=== PATIENT | female | born 1955 | race Caucasian/White ===

== ENCOUNTER 2016-12-09 17:38 | Inpatient (IN) | payer MEDICAID ==
[2016-12-09] MEDS ORDERED: NS 500 ML IV ONE (17:41)
[2016-12-09 18:03] LABS: % IMMATURE GRANULYOCYTES 0.1 % (0.0-1.1); ABSOLUTE IMMATURE GRANULOCYTES 0.01 10^3/uL (0.00-0.10); ADD DIFF? NO; ADD MORPH? NO; ADD SCAN? NO; ATYPICAL LYMPHOCYTE FLAG 10 (0-99); FRAGMENT RBC FLAG 0 (0-99); HEMATOCRIT 45.2 % (38.0-47.0); HEMOGLOBIN 14.8 g/dL (12.6-16.3); LEFT SHIFT FLG 0 (0-99); LIPEMIA HEMOLYSIS FLAG 80 (0-99); MEAN CELL HEMOGLOBIN 30.5 pg (27.9-34.1); MEAN CELL HEMOGLOBIN CONCENTR. 32.7 g/dL (32.4-36.7); MEAN PLATELET VOLUME 10.3 fL (8.7-11.7); PLATELET CLUMPS FLAG 10 (0-99); PLATELET COUNT 261 10^3/uL (150-400); RED BLOOD CELL COUNT 4.86 10^6/uL (4.18-5.33); RED CELL DISTRIBUTION WIDTH 13.4 % (11.5-15.2)
[2016-12-09 18:12] LABS: INR 1.01 (0.83-1.16)
[2016-12-09 18:13] LABS: APTT 26.8 SEC (23.0-38.0)
--- NOTE | 2016-12-09 18:13 | EDPHY ---
H & P Time Seen by Provider: 12/09/16 17:41 HPI/ROS: HPI High blood pressure comma short of breath. 61-year-old female from the up stairs office of her primary care physician Dr. Montes De Oca. She reports that she noticed that she was feeling some shortness of breath and lightheadedness with exertion at the end this last summer. She reports over the last 2 weeks this is gotten worse. She reports that if she goes up a flight of stairs she becomes very short of breath and has a difficult time catching her breath. In association with that she feels palpitations which she describes as her heart beating fast and she feels lightheaded. She denies any associated chest pain. ROS: Constitutional: No fever, no chills. No weakness. Eyes: No discharge. No changes in vision. ENT: No sore throat. No nasal congestion or rhinorrhea. Respiratory: No cough. As above. Cardiac: No chest pain, as above. Gastrointestinal: No abdominal pain, no vomiting, no diarrhea. Genitourinary: No hematuria. No dysuria or increased frequency with urination. Musculoskeletal: No back pain. No neck pain. No myalgias or arthralgias. Skin: No rashes. Neurological: No headache. No focal weakness or altered sensation. Past medical history: Hyperlipidemia, oophorectomy, hypothyroidism. As above. Social history: Nonsmoker. No alcohol. Here by herself. Physical Exam: General Appearance: Alert, no distress. This patient is responding to questions appropriately and in full sentences. This patient appears well- hydrated and well-nourished. Eyes: Pupils equal and round no pallor or injection. No lid edema, erythema or injection. ENT, Mouth: Mucous membranes are moist. The pharyngeal tissues are unremarkable. No edema or swelling. No asymmetry suggestive of abscess. No erythema or exudates. Respiratory: There are no retractions, lungs are clear to auscultation with good air movement bilaterally. No tachypnea. Cardiovascular: Regular rate and rhythm. Heart sounds distant. No murmur. Gastrointestinal: Abdomen is soft and nontender, no masses, bowel sounds normal. No focal tenderness at McBurney's point. No Hernandez sign. Neurological: Motor sensory function is grossly intact. Cranial nerves are normal. Gait is normal. Skin: Warm and dry, no rashes. Musculoskeletal: Neck is supple and nontender. Extremities are symmetrical. All joints range without pain or impingement. Psychiatric: No agitation. No depression. Database: EKG: EKG time is 6:29 p.m.; EKG shows a narrow complex normal sinus rhythm with a ventricular rate of 95. The GA, QRS, QT intervals are within normal limits. There are no ST-T wave changes indicative of ischemic or injury pattern. No evidence of right heart strain. Interpreted by me. Imaging: Chest x-ray AP portable; the cardiac mediastinal silhouette is unremarkable. No evidence of infiltrate or pneumothorax. No acute cardiopulmonary disease process noted. Interpreted by me. CT angiogram of chest; no evidence of pulmonary embolism. There is some mild dilatation of the proximal aorta. This is otherwise a negative study. No evidence of pericardial effusion. Results discussed with staff radiologist Dr. Sergio Gaytan. Procedures: Emergency department course: Vital signs reviewed. She is afebrile. Triage blood pressure 212/116. Heart rate in the 80s. On my evaluation at 6:10 p.m. her blood pressure is 234/204. galvanizing pot runner shows a narrow complex sinus rhythm with ventricular rate of 89. She is 92% on 2 L by nasal cannula oxygen. An IV was placed. She will be started on IV nitroglycerin drip initially at 60 micrograms/minute with orders to titrate this medication up to a systolic blood pressure less than 200 and a diastolic blood pressure less than 110. 6:10 p.m., placed in since pulse oximetries dipping down into the upper 80s on nasal cannula oxygen. Placed on face mask oxygen at 5 L per minute. 6:20 p.m., patient re-evaluated. Currently on nitroglycerin drip at 60 micrograms/minute, blood pressure has decreased to 135/82. Nitroglycerin drip decreased to 20 mcg per minute. Patient denies any lightheadedness. States that she feels better. Denies any chest pain. 6:35 p.m., blood pressure 118/74. 6:40 p.m., blood pressure 123/76. Pulse oximetry at 94% on non-rebreather face mask at 5 L. Patient comfortable and states she feels better. D-dimer elevated. CT angiogram of chest ordered. Patient consents. 8:25 p.m., patient resting comfortably. Blood pressure currently 152/97. galvanizing pot runner shows a narrow complex sinus rhythm with ventricular rate of 79. Pulse oximetry is 93-95% on 6 L by face mask. Results of CT scan and blood work discussed with her. Plan for admission reviewed. She endorses. Hospitalist mahendra. Nitroglycerin drip has been discontinued. 8:50 p.m., spoke with on-call hospitalist Dr. Barber. Case discussed in detail with him. He accepts the patient for admission to telemetry observation. An echocardiogram be obtained, catecholamines will be evaluated. Patient resting comfortably at this time. Blood pressure currently 136/79. Heart rate 78. Her remaining emergency department course under my care has been uneventful. I have filled out the appropriate transfer paperwork. She was transferred in stable and improved condition to [facility]. Differential Diagnosis: The differential diagnosis on this patient includes but is not limited to hypertensive emergency, congestive heart failure secondary to hypertensive emergency, pulmonary embolism, thyroid storm, pheochromocytoma. This represents a partial list of diagnoses considered. These considerations are based on history, physical exam, past history, reassessment and diagnostic testing. Smoking Status: Former smoker Constitutional: Initial Vital Signs Temperature (C) 36.5 C 12/09/16 17:43 Heart Rate 89 12/09/16 17:43 Respiratory Rate 20 12/09/16 17:43 Blood Pressure 212/116 H 12/09/16 17:43 O2 Sat (%) 89 L 12/09/16 17:43 O2 Delivery Mode Room Air O2 (L/minute) 6 Allergies/Adverse Reactions: tetracycline Allergy (Verified 12/09/16 17:51) Home Medications: Medication Instructions Recorded Atorvastatin Calcium 12/09/16 Levothyroxine 12/09/16 Medical Decision Making - Diagnostics Imaging Results: Imaging Impressions Chest X-Ray 12/09/16 17:42 Impression: No acute abnormality. If there is progression of the patient's symptoms, consider PA and lateral upright views in the department. Chest/Thorax CTA 12/09/16 18:44 Impression: 1. No evidence of pulmonary embolic disease. 2. Aortic plaque formation and mild dilatation of the ascending aorta, without evidence for aortic dissection. Results called and discussed with Avinash Trivedi M.D., on December 09, 2016 at 2021. Critical Care Time: I spent a total of 47 minutes of critical care time in obtaining history, performing a physical exam, bedside monitoring of interventions, collecting and interpreting tests and discussion with consultants but not including time spent performing procedures. - Data Points Laboratory Results: Laboratory Results 12/09/16 17:55 12/09/16 17:55 12/09/16 12/09/16 12/09/16 18:00 17:55 17:55 WBC RBC Hgb Hct MCV MCH MCHC RDW Plt Count MPV Neut % (Auto) Lymph % (Auto) [place] % (Auto) Eos % (Auto) Baso % (Auto) Nucleat RBC Rel Count Absolute Neuts (auto) Absolute Lymphs (auto) Absolute Monos (auto) Absolute Eos (auto) Absolute Basos (auto) Absolute Nucleated RBC Immature Gran % Immature Gran # PT INR APTT D-Dimer Sodium 141 mEq/L mEq/L (134-144) Potassium 4.1 mEq/L mEq/L (3.5-5.2) Chloride 104 mEq/L mEq/L (97-110) Carbon Dioxide 25 mEq/l mEq/l (22-31) Anion Gap 12 mEq/L mEq/L (8-16) BUN 9 mg/dL mg/dL (7-23) Creatinine 0.8 mg/dL mg/dL (0.6-1.0) Estimated GFR > 60 Glucose 99 mg/dL mg/dL (70-100) Calcium 9.3 mg/dL mg/dL (8.5-10.4) Creatine Kinase 58 IU/L IU/L (0-156) CK-MB (CK-2) Fraction 0.68 ng/mL ng/mL (0.00-4.55) Troponin I < 0.012 ng/mL ng/mL (0.000-0.034) NT-Pro-B Natriuret Pep 194 pg/mL H pg/mL (0-125) TSH 3.220 uIU/mL uIU/mL (0.465-4.680) Plasma Free Normeta Pending Plas Total Metaneph Pending 12/09/16 12/09/16 17:55 17:55 WBC 7.62 10^3/uL 10^3/uL (3.80-9.50) RBC 4.86 10^6/uL 10^6/uL (4.18-5.33) Hgb 14.8 g/dL g/dL (12.6-16.3) Hct 45.2 % % (38.0-47.0) MCV 93.0 fL fL (81.5-99.8) MCH 30.5 pg pg (27.9-34.1) MCHC 32.7 g/dL g/dL (32.4-36.7) RDW 13.4 % % (11.5-15.2) Plt Count 261 10^3/uL 10^3/uL (150-400) MPV 10.3 fL fL (8.7-11.7) Neut % (Auto) 64.5 % % (39.3-74.2) Lymph % (Auto) 25.1 % % (15.0-45.0) [place] % (Auto) 8.5 % % (4.5-13.0) Eos % (Auto) 1.3 % % (0.6-7.6) Baso % (Auto) 0.5 % % (0.3-1.7) Nucleat RBC Rel Count 0.0 % % (0.0-0.2) Absolute Neuts (auto) 4.91 10^3/uL 10^3/uL (1.70-6.50) Absolute Lymphs (auto) 1.91 10^3/uL 10^3/uL (1.00-3.00) Absolute Monos (auto) 0.65 10^3/uL 10^3/uL (0.30-0.80) Absolute Eos (auto) 0.10 10^3/uL 10^3/uL (0.03-0.40) Absolute Basos (auto) 0.04 10^3/uL 10^3/uL (0.02-0.10) Absolute Nucleated RBC 0.00 10^3/uL 10^3/uL (0-0.01) Immature Gran % 0.1 % % (0.0-1.1) Immature Gran # 0.01 10^3/uL 10^3/uL (0.00-0.10) PT 13.0 SEC SEC (12.0-15.0) INR 1.01 (0.83-1.16) APTT 26.8 SEC SEC (23.0-38.0) D-Dimer 1.85 ug/mLFEU H ug/mLFEU (0.00-0.50) Sodium Potassium Chloride Carbon Dioxide Anion Gap BUN Creatinine Estimated GFR Glucose Calcium Creatine Kinase CK-MB (CK-2) Fraction Troponin I NT-Pro-B Natriuret Pep TSH Plasma Free Normeta Plas Total Metaneph Medications Given: Nitroglycerin/Dextrose (Nitroglycerin 200 Mcg/Ml (Premix)) 250 mls @ 0 mls/hr IV CONT ZARIA; Titrate PRN Reason: Protocol Stop: 06/07/17 23:59 Last Admin: 12/09/16 19:53 Dose: 250 mls Discontinued Medications Acetaminophen (Tylenol) 1,000 mg PO EDNOW ONE Stop: 12/09/16 18:59 Last Admin: 12/09/16 19:00 Dose: 1,000 mg Sodium Chloride (Ns) 500 mls @ 1,000 mls/hr IV EDNOW ONE PRN Reason: Protocol Stop: 12/09/16 18:10 Last Admin: 12/09/16 18:22 Dose: 500 mls Nitroglycerin/Dextrose (Nitroglycerin 200 Mcg/Ml (Premix)) 250 mls @ 0 mls/hr IV EDNOW ONE; Titrate PRN Reason: Protocol Stop: 12/09/16 18:02 Last Admin: 12/09/16 18:38 Dose: 250 mls Departure - Departure Disposition: [facility] Inpatient Acute Clinical Impression: Dyspnea, Hypertensive emergency, Hypoxia
[2016-12-09 18:20] LABS: ANION GAP 12 mEq/L (8-16); CALCIUM 9.3 mg/dL (8.5-10.4); CARBON DIOXIDE 25 mEq/l (22-31); CHLORIDE 104 mEq/L (97-110); CREATININE 0.8 mg/dL (0.6-1.0); GLOMERULAR FILTRATION RATE > 60; GLUCOSE 99 mg/dL (70-100); POTASSIUM 4.1 mEq/L (3.5-5.2); SODIUM 141 mEq/L (134-144)
[2016-12-09] MEDS: NITROGLYCERIN/DEXTROSE 250 ML IV ONE ×2 (18:20→18:38)
[2016-12-09 18:27] LABS: CREATINE KINASE-MB FRACTION 0.68 ng/mL (0.00-4.55); TROPONIN I < 0.012 ng/mL (0.000-0.034)
--- NOTE | 2016-12-09 18:34 | CPEKG ---
Heart Rate: 95 RR Interval: 632 P-R Interval: 156 QRSD Interval: 72 QT Interval: 372 QTC Interval: 468 P [place]: 79 QRS [place]: 62 T Wave [place]: 62 EKG Severity - NORMAL ECG - EKG Impression: SINUS RHYTHM Electronically Signed By: Avinash Trivedi 09-Dec-2016 19:38:04
[2016-12-09] MEDS ORDERED: IOPAMIDOL (ISOVUE 370) 100 ML BTL IV ONE (18:49)
[2016-12-09] MEDS ORDERED: ACETAMINOPHEN 500 MG TAB PO ONE (18:58)
[2016-12-09] MEDS ORDERED: NITROGLYCERIN/DEXTROSE 250 ML IV SCH (20:00)
[2016-12-09] MEDS ORDERED: ONDANSETRON 4 MG/2 ML VIAL IVP PRN (20:50)
[2016-12-09] MEDS ORDERED: ONDANSETRON DISINTEGRATING 4 MG TAB PO PRN (20:50)
[2016-12-09] MEDS ORDERED: ACETAMINOPHEN 325 MG TAB PO PRN (20:50)
[2016-12-09 21:25] LABS: COLOR PALE YELLOW; LEUKOCYTE ESTERASE,URINE NEGATIVE (NEGATIVE); NITRITE,URINE NEGATIVE (NEGATIVE)
--- NOTE | 2016-12-09 23:18 | PDGENHP ---
History and Physical - Chief Complaint Dyspnea - History of Present Illness 61 yo F w/ hypothyroidism presented to ED with LEE and lightheadedness. Patient has been experienced dyspnea and lightheadedness with exertions for about 6 months now. These symptoms have been progressive over this period. She also reports occasional fast heart rate accompanying these symptoms but denies jung chest pain. At this point she can walk up one flight of stairs but this takes a lot of effort, requires breaks, and results in significant dyspnea. Of note she smoked a pack of cigarettes per day for about 45 years. She has never required O2 in the past. In the ED she was noted to be very hypertensive on arrival (SBP>200). She was placed on a nitroglycerin drip with precipitous drop in BP to SBP 120s. This was stopped and BP returned to SBP 150 range. Additional work-up there included normal ECG, unremarkable laboratory work-up, and CTPE within normal limits. Patient was admitted for observation, BP control, and cardiac work-up for possible anginal equivalent symptoms. History Information - Allergies/Home Medication List Allergies/Adverse Reactions: tetracycline Allergy (Verified 12/09/16 17:51) Home Medications: Atorvastatin Calcium 12/09/16 [Last Taken Unknown] Levothyroxine 12/09/16 [Last Taken Unknown] I have personally reviewed and updated: family history, medical history - Past Medical History Additional medical history: Hypothyroid - Social History Smoking Status: Former smoker Review of Systems Review of Systems: ROS: 10pt was reviewed & negative except for what was stated in HPI & below Physical Exam Physical Exam: Temp Pulse Resp BP Pulse Ox 36.6 C 82 16 142/80 H 92 12/09/16 22:20 12/09/16 23:14 12/09/16 23:14 12/09/16 23:14 12/09/16 23:14 O2 (L/minute) 6 Constitutional: no apparent distress, appears nourished Eyes: PERRL, EOMI Ears, Nose, Mouth, Throat: moist mucous membranes, no oral mucosal ulcers Cardiovascular: regular rate and rhythym, no murmur, rub, or gallop Respiratory: no respiratory distress, reduced air movement Gastrointestinal: normoactive bowel sounds, soft, non-tender abdomen Skin: warm, normal color Musculoskeletal: full muscle strength, no muscle tenderness Neurologic: AAOx3, CN II-XII Intact Psychiatric: interacting appropriately, not anxious Lab Data & Imaging Review 12/09/16 17:55 12/09/16 17:55 WBC 7.62 10^3/uL (3.80-9.50) 12/09/16 17:55 RBC 4.86 10^6/uL (4.18-5.33) 12/09/16 17:55 Hgb 14.8 g/dL (12.6-16.3) 12/09/16 17:55 Hct 45.2 % (38.0-47.0) 12/09/16 17:55 MCV 93.0 fL (81.5-99.8) 12/09/16 17:55 MCH 30.5 pg (27.9-34.1) 12/09/16 17:55 MCHC 32.7 g/dL (32.4-36.7) 12/09/16 17:55 RDW 13.4 % (11.5-15.2) 12/09/16 17:55 Plt Count 261 10^3/uL (150-400) 12/09/16 17:55 MPV 10.3 fL (8.7-11.7) 12/09/16 17:55 Neut % (Auto) 64.5 % (39.3-74.2) 12/09/16 17:55 Lymph % (Auto) 25.1 % (15.0-45.0) 12/09/16 17:55 [place] % (Auto) 8.5 % (4.5-13.0) 12/09/16 17:55 Eos % (Auto) 1.3 % (0.6-7.6) 12/09/16 17:55 Baso % (Auto) 0.5 % (0.3-1.7) 12/09/16 17:55 Nucleat RBC Rel Count 0.0 % (0.0-0.2) 12/09/16 17:55 Absolute Neuts (auto) 4.91 10^3/uL (1.70-6.50) 12/09/16 17:55 Absolute Lymphs (auto) 1.91 10^3/uL (1.00-3.00) 12/09/16 17:55 Absolute Monos (auto) 0.65 10^3/uL (0.30-0.80) 12/09/16 17:55 Absolute Eos (auto) 0.10 10^3/uL (0.03-0.40) 12/09/16 17:55 Absolute Basos (auto) 0.04 10^3/uL (0.02-0.10) 12/09/16 17:55 Absolute Nucleated RBC 0.00 10^3/uL (0-0.01) 12/09/16 17:55 Immature Gran % 0.1 % (0.0-1.1) 12/09/16 17:55 Immature Gran # 0.01 10^3/uL (0.00-0.10) 12/09/16 17:55 PT 13.0 SEC (12.0-15.0) 12/09/16 17:55 INR 1.01 (0.83-1.16) 12/09/16 17:55 APTT 26.8 SEC (23.0-38.0) 12/09/16 17:55 D-Dimer 1.85 ug/mLFEU (0.00-0.50) H 12/09/16 17:55 Sodium 141 mEq/L (134-144) 12/09/16 17:55 Potassium 4.1 mEq/L (3.5-5.2) 12/09/16 17:55 Chloride 104 mEq/L (97-110) 12/09/16 17:55 Carbon Dioxide 25 mEq/l (22-31) 12/09/16 17:55 Anion Gap 12 mEq/L (8-16) 12/09/16 17:55 BUN 9 mg/dL (7-23) 12/09/16 17:55 Creatinine 0.8 mg/dL (0.6-1.0) 12/09/16 17:55 Estimated GFR > 60 12/09/16 17:55 Glucose 99 mg/dL (70-100) 12/09/16 17:55 Calcium 9.3 mg/dL (8.5-10.4) 12/09/16 17:55 Creatine Kinase 58 IU/L (0-156) 12/09/16 17:55 CK-MB (CK-2) Fraction 0.68 ng/mL (0.00-4.55) 12/09/16 17:55 Troponin I < 0.012 ng/mL (0.000-0.034) 12/09/16 17:55 NT-Pro-B Natriuret Pep 194 pg/mL (0-125) H 12/09/16 17:55 TSH 3.220 uIU/mL (0.465-4.680) 12/09/16 17:55 Urine Color PALE YELLOW 12/09/16 21:20 Urine Appearance CLEAR 12/09/16 21:20 Urine pH 5.0 (5.0-7.5) 12/09/16 21:20 Ur Specific [place] <= 1.005 (1.002-1.030) 12/09/16 21:20 Urine Protein NEGATIVE (NEGATIVE) 12/09/16 21:20 Urine Ketones NEGATIVE (NEGATIVE) 12/09/16 21:20 Urine Blood NEGATIVE (NEGATIVE) 12/09/16 21:20 Urine Nitrate NEGATIVE (NEGATIVE) 12/09/16 21:20 Urine Bilirubin NEGATIVE (NEGATIVE) 12/09/16 21:20 Urine Urobilinogen 0.2 EU (0.2-1.0) 12/09/16 21:20 Ur Leukocyte Esterase NEGATIVE (NEGATIVE) 12/09/16 21:20 Urine Glucose NEGATIVE (NEGATIVE) 12/09/16 21:20 Imaging Review: CTPE without pulmonary embolism. Visualized and Interpreted Chest x-ray results: Yes Chest X-Ray results: no infiltrate, normal Visualized and Interpreted EKG results: Yes EKG Interpretation: Positive for: normal sinsus rhythm, NS ST wave abnormalities Assessment & Plan Assessment: 61 yo F presents with fatigue, LEE, lightheadedness, hypoxia, and uncontrolled hypertension. Plan: 1. LEE, lightheadedness - This could represent anginal equivalent noting association with exertion. Additionally, could be related to uncontrolled BP noted upon arrival to the ED or a result of significant, unexplained hypoxia. CTPE negative for thromboembolic disease. - Monitor on telemetry - Trend cardiac enzymes - TTE, treadmill stress test ordered, NPO after MN 2. Hypertensive urgency - SBP >200 upon arrival to the ED. Not on BP medications as an outpatient. Some concern that this could be related to acute ischemic event, although ECG and initial cardiac enzymes unremarkable. Also this could be a stress response to significant hypoxia noted on arrival. BP 140/ 80 now with no medication on board. - Acute cardiac work-up as above - PRN medication overnight to maintain SBP<170 (No BB noting stress test tomorrow) - Will start amlodipine 5 mg qD in the morning - Metanephrines pending 3. AHRF - Interestingly requiring ~4 L/min O2 to maintain sats currently. CTPE without PE, consolidation, or effusion to suggest etiology. Suspect undiagnosed COPD noting significant smoking hx. Cardiac work-up as above. - TTE, stress ordered for further evaluation - Duonebs PRN - Recommend outpatient PFTs 4. Hypothyroid - TSH WNL, continue home LTX. Diet - Cardiac, NPO @ MN Ppx - SCDs Code - Full Dispo - Admit to observation status
[2016-12-10] MEDS ORDERED: IPRATROPIUM/ALBUTEROL 3 ML DEYVIAL IH PRN (00:02)
[2016-12-10 04:11] LABS: % IMMATURE GRANULYOCYTES 0.3 % (0.0-1.1); ABSOLUTE IMMATURE GRANULOCYTES 0.02 10^3/uL (0.00-0.10); ADD DIFF? NO; ADD MORPH? NO; ADD SCAN? NO; ATYPICAL LYMPHOCYTE FLAG 10 (0-99); FRAGMENT RBC FLAG 0 (0-99); HEMATOCRIT 40.9 % (38.0-47.0); HEMOGLOBIN 13.3 g/dL (12.6-16.3); LEFT SHIFT FLG 0 (0-99); LIPEMIA HEMOLYSIS FLAG 80 (0-99); MEAN CELL HEMOGLOBIN 30.8 pg (27.9-34.1); MEAN CELL HEMOGLOBIN CONCENTR. 32.5 g/dL (32.4-36.7); MEAN CELL VOLUME 94.7 fL (81.5-99.8); MEAN PLATELET VOLUME 10.6 fL (8.7-11.7); PLATELET CLUMPS FLAG 0 (0-99); PLATELET COUNT 210 10^3/uL (150-400); RED BLOOD CELL COUNT 4.32 10^6/uL (4.18-5.33); RED CELL DISTRIBUTION WIDTH 13.5 % (11.5-15.2)
[2016-12-10 04:29] LABS: ALANINE AMINOTRANSFERASE 34 IU/L (9-52); ALBUMIN 3.5 g/dL (3.5-5.0); ALKALINE PHOSPHATASE 61 IU/L (38-126); ANION GAP 11 mEq/L (8-16); ASPARTATE AMINOTRANSFERASE 16 IU/L (14-46); BILIRUBIN,TOTAL 0.5 mg/dL (0.1-1.4); CALCIUM 9.2 mg/dL (8.5-10.4); CARBON DIOXIDE 23 mEq/l (22-31); CHLORIDE 106 mEq/L (97-110); CREATININE 0.8 mg/dL (0.6-1.0); GLOMERULAR FILTRATION RATE > 60; GLUCOSE 89 mg/dL (70-100); MAGNESIUM 2.2 mg/dL (1.6-2.3); POTASSIUM 3.7 mEq/L (3.5-5.2); SODIUM 140 mEq/L (134-144); TOTAL PROTEIN 6.7 g/dL (6.3-8.2)
[2016-12-10 04:36] LABS: TROPONIN I < 0.012 ng/mL (0.000-0.034)
--- NOTE | 2016-12-10 09:57 | ECHO ---
[email or web address] [address] Main: [phone] Fax: Transthoracic Echocardiogram Name: RUPESH ROMERO MR#: [id number] Study Date: 12/10/2016 Study Time: 08:00 AM Date of : 1955 Age: 61 year(s) Height: 165.1 cm (65 in.) Weight: 71.67 kg (158 lb.) BSA: 1.79 m2 Gender: Female Examination: Echo Indication: hypertensive emergency; dyspnea, eval for diastolic dysfunction and valves issues Image Quality: Technically Difficult Contrast: Requested by: Uziel Barber BP: 149 mmHg/104 mmHg Heart Rate: Rhythm: Indication: hypertensive emergency; dyspnea, eval for diastolic dysfunction and valves issues Procedure Staff Quality Internship: Jovita Schuster Reading Physician: Jessie Rousseau Requesting Provider: Conclusions: Normal size left ventricle. No LV hypertrophy. Normal global systolic LV function. EF is 67 %. No regional wall motion abnormality. Normal size right ventricle. Normal RV function. No significant valvular disease Measurements: Chambers Valvular Assessment AV/MV Valvular Assessment TV/PV Normal Normal Normal Name Value Range Name Value Range Name Value Range IVSd (2D): 0.7 cm (0.6 cm-1.1 AV Vmax: 1.18 m/s (1 m/s-1.7 PV Vmax: 0.73 m/s (0.6 m/s-0.9 cm) m/s) m/s) LVDd (2D): 3.9 cm (3.9 cm-5.3 AV maxP mmHg ( - ) PV PGmax: 2 mmHg ( - ) cm) LVOT Vmax: 0.90 m/s (0.7 m/s-1.1 LVDs (2D): 2.4 cm (2.1 cm-4 m/s) cm) MV E Vmax: 0.72 m/s ( - ) LVPWd (2D): 0.8 cm ( - ) MV A Vmax: 0.74 m/s ( - ) LVEF (BP): 67 % (>=55 %) MV E/A: 0.97 ( - ) Continued Measurements: Chambers Valvular Assessment AV/MV Name Value Name Value LADs Lon.3 cm MV DecTime: 201 m/s LA Area: 12.0 cm2 MV E' Septal: 0.05 m/s Patient: RUPESH ROMERO Study Date: 12/10/2016 Page 1 of 2 08:00 AM LA Volume: 31 ml MV E/E' Septal: 13.70 LA Volume Index: 17.3 ml/m2 MV E/E' Lateral: 10.70 RA Area: 10.9 cm2 Additional Vessels Name Value Ao Ascendin.3 cm Findings: Left Ventricle: Normal size left ventricle. No LV hypertrophy. Normal global systolic LV function. EF is 67 %. No regional wall motion abnormality. Grade 1 diastolic dysfunction (abnormal relaxation). Right Ventricle: Normal size right ventricle. Normal RV function. Left Atrium: The left atrium is normal in size. Right Atrium: The right atrium is normal in size. Mitral Valve: The mitral valve is normal in appearance and function. Trivial mitral valve regurgitation. Aortic Valve: Aortic valve is not well visualized. There is no aortic valve regurgitation. No aortic valve stenosis is present. Tricuspid Valve: The tricuspid valve is normal in appearance and function. There is no significant tricuspid valve regurgitation. Pulmonic Valve: Pulmonary valve not well visualized. There is no pulmonic regurgitation seen. Aorta: The aorta is normal. Normal size aortic root. Normal size ascending aorta measuring 3.3 cm. IVC: The IVC is normal sized. There is greater mac 50% respiratory excursion. Pericardium: Trace anterior pericardial effusion versus fat pad. (No Signature Object) Patient: RUPESH ROMERO Study Date: 12/10/2016 Page 2 of 2 08:00 AM [id number]
--- NOTE | 2016-12-10 11:03 | HOSPPROG ---
Hospitalist Progress Note Assessment/Plan: 61 yo F presents with fatigue, LEE, lightheadedness, hypoxia, and uncontrolled hypertension. Today is my first encounter with the patient, chart reviewed. Discussed her care with Dr Aly *Acute hypoxemic respiratory failure -CTA shows nothing acute -chest x-ray shows nothing acute -was on 6 L of oxygen now on 2 L -had significant dyspnea on exertion with associated lightheadedness -echocardiogram shows no regional wall abnormalities with an EF of 67% she has normal RV function -stress test stable/ no ischemia -she could have an undiagnosed COPD with a history significant for smoking -continue duo nebs -check pft now -trial of Advair and steroids -will ask pulmonology to see -no hx of asthma or chronic bronchitis, mainly has exertional dyspnea -will check a alpha-1 antitrypsin level and procalcitonin * hypertensive urgency with a systolic blood pressure greater than 200 on arrival to the ER -could be a stress response due to the hypoxemia -pressure is markedly improved with use of oxygen * hypothyroidism-TSH is stable * Hx of smoking x 45 years/pack a day -quit 2 years ago *Plan: Came by to evaluate the patient again this afternoon. She is very short of breath with ADL's. Will need O2 at DC/ will initiate inhalers, steroids. Will ask Pulmonology to see. She will require another midnight stay for further evaluation which will make her IP status. Further f/u with PFT's. Subjective: Mitali is feeling short of breath. Was short of breath walking to the bathroom. Objective: Vital Signs Temp Pulse Resp BP Pulse Ox 36.6 C 84 16 149/104 H 91 L 12/10/16 08:15 12/10/16 08:15 12/10/16 08:15 12/10/16 08:15 12/10/16 08:15 Laboratory Results 12/10/16 03:53 12/10/16 03:53 12/09/16 12/10/16 12/11/16 05:59 05:59 05:59 Intake Total 880 Balance 880 PT 13.0 SEC (12.0-15.0) 12/09/16 17:55 INR 1.01 (0.83-1.16) 12/09/16 17:55 - Physical Exam Constitutional: no apparent distress, appears nourished, not in pain Eyes: PERRL Ears, Nose, Mouth, Throat: hearing normal Cardiovascular: regular rate and rhythym, no murmur, rub, or gallop Respiratory: no respiratory distress, reduced air movement (right base) Skin: warm Musculoskeletal: full muscle strength Neurologic: AAOx3 Psychiatric: interacting appropriately, not anxious ICD10 Worksheet Patient Problems: Problems Problem Status Onset Dyspnea Acute Hypertensive emergency Acute Hypoxia Acute
--- NOTE | 2016-12-10 11:33 | CPR ---
[f rep st] NONINVASIVE CARDIAC PROCEDURE REPORT SUPERVISING FAN BALANCER: Jessie Rousseau MD. INDICATION FOR PROCEDURE: Ongoing shortness of breath, evaluation for ischemia. PRE: After obtaining informed consent, patient was placed on electrocardiogram. Initial EKG shows s inus rhythm, normal axis, RSR prime noted in V1, interventricular conduction delay, no acute ST or T- wave abnormalities. Patient's initial blood pressure was 138/90, patient noted to have on room-air s aturation of 84%, placed on 2 L nasal cannula with saturation up to 93%. Patient denies of any chest pain or shortness of breath, or symptoms suggesting of ischemia. STRESS: The patient was placed on exercise treadmill, following standard Florentin protocol with the [facility] findings: 1. Patient exercised for 2 minutes and 29 seconds, 4.4 METS. 2. Patient obtained a heart rate of 117 beats per minute, 74% of MPHR. 3. Patient denied of any chest pain, but did report increased shortness of breath with exertion. Th e patient had no significant EKG changes suggesting of ischemia throughout testing, SpO2 on 2 L nasal cannula did drop down to 85% with exercise. No arrhythmias or pauses noted. 4. BP response at rest 138/90, peak 190/100. 5. Test was stopped due to increased shortness of breath, and maximum effort. 6. Carcamo treadmill score of 2 placing patient at intermediate cardiovascular risk. RECOVERY: Patient recovered for 5 minutes with blood pressure returning back to baseline. No signif icant EKG changes, she remained asymptomatic. No symptoms suggesting of ischemia. IMPRESSION: A 61-year-old female admitted with increased shortness of breath, being attempted to be evaluated for cardiac ischemia, exercise treadmill testing. Patient was unable to get her heart rate up to 85% of MPHR, making the test invalid for evaluation of ischemia. After discussing with Dr. Ivory dias, it was felt best that the patient should be further evaluated by nuclear stress testing, results of testing were called to Dr. Bacon of hospitalist services who is in agreement. Will plan for vonnie ent to undergo MPI study later this afternoon. She was taken back to the PCU in stable condition wit hout any complaints. /[id number]/MODL
[2016-12-10] MEDS ORDERED: REGADENOSON 0.4 MG/5 ML SYR IVP ONE (11:34)
--- NOTE | 2016-12-10 12:58 | CPR ---
[f rep st] NONINVASIVE CARDIAC PROCEDURE REPORT NAME OF STUDY: Lexiscan injection of Lexiscan MPI study. INDICATION FOR TESTING: Increased ongoing shortness of breath, evaluation for cardiac ischemia, poor exercise tolerance on exercise treadmill testing with nondiagnostic stress test. PRE: After obtaining informed consent, ensuring patient's n.p.o. status of caffeine for greater than 12 hours, patient was placed on electrocardiogram. Initial EKG showing sinus rhythm, nonspecific T- wave abnormalities in lateral leads. Patient denies any chest pain or symptoms suggesting of ischemi a. Initial blood pressure 130/98, saturation 93% on 3 L nasal cannula. INJECTION: Patient was given Lexiscan slow IV push followed by nuclear isotope. Patient did report increased shortness of breath within 1 minute of injection, with mild midsternal pressure, her vital signs remained stable, with no significant EKG changes with post injection, patient was given caffein ated beverage, and within 5 minutes symptoms did subside. Patient's peak heart rate did go up to 95 beats per minute post injection, but did return within 5 minutes back to her baseline, peak blood pre ssure at 4 minutes was 146/90. Within 5 minutes, patient reported all symptoms subsided. Vital sign s stable. IMPRESSION: A 61-year-old female reporting increased shortness of breath over the last few months, b eing evaluated for cardiac ischemia, underwent exercise treadmill testing this morning, with poor exe rcise tolerance, and making test invalid. Unable to get heart rate up to peak tolerance due to fatig ue and shortness of breath. No significant EKG changes with Lexiscan injection, no arrhythmias noted , patient did report within 1 minute of injection of mild chest pressure and increased shortness of b reath, but symptoms subsided within 5 minutes post injection with caffeinated beverage. Vital signs are currently stable, she is asymptomatic with symptoms suggesting of ischemia, she will finish posts tress imaging in Nuclear Medicine at this time. MPI results pending. /[id number]/MODL
--- NOTE | 2016-12-10 14:09 | ASMTCMCOM ---
CM Note CM Note Notes: Patient admitted with fatigue, LEE, hypoxia, and uncontrolled hypertension. Her stress test and echocardiogram were normal. Per hospitalist, there is a suspicion that she has an undiagnosed COPD (patient has a significant hx of smoking). PFTs ordered today. Anticipate patient will d/c home without any needs. CM available if any arise. Date Signed: 12/10/2016 02:08 PM Electronically Signed By:Kayy Carolina RN
[2016-12-10] MEDS ORDERED: IPRATROPIUM/ALBUTEROL 3 ML DEYVIAL ONE (15:22)
[2016-12-10] MEDS: IPRATROPIUM/ALBUTEROL 3 ML DEYVIAL IH SCH ×2 (15:30→23:23)
[2016-12-10] MEDS: methylPREDNISolone SOD SUCC 125 MG/2 ML VIAL IVP SCH (16:15)
[2016-12-10] MEDS: amLODIPine BESYLATE 5 MG TAB PO SCH (16:15)
[2016-12-10] MEDS: LEVOTHYROXINE 125 MCG TAB PO SCH (21:47)
[2016-12-10] MEDS: ATORVASTATIN CALCIUM 10 MG TAB PO SCH (21:47)
[2016-12-11] MEDS: methylPREDNISolone SOD SUCC 125 MG/2 ML VIAL IVP SCH ×2 (04:40→05:42)
[2016-12-11] MEDS: IPRATROPIUM/ALBUTEROL 3 ML DEYVIAL IH SCH ×4 (05:33→23:08)
[2016-12-11] MEDS: CHOLECALCIFEROL VIT D3 2,000 UNITS TAB/CAP PO SCH (08:24)
[2016-12-11] MEDS: OMEGA-3 FATTY ACIDS 1,000 MG CAP PO SCH (08:25)
[2016-12-11] MEDS: amLODIPine BESYLATE 5 MG TAB PO SCH (08:25)
--- NOTE | 2016-12-11 08:33 | HOSPPROG ---
Hospitalist Progress Note Assessment/Plan: 61 yo F presents with fatigue, LEE, lightheadedness, hypoxia, and uncontrolled hypertension. *Acute hypoxemic respiratory failure -CTA shows nothing acute -chest x-ray shows nothing acute -uusally on room air/ on 4 liters this morning -had significant dyspnea on exertion with associated lightheadedness -echocardiogram shows no regional wall abnormalities with an EF of 67% she has normal RV function -myocardial perfusion scan/ no ischemia -she could have an undiagnosed COPD with a history significant for smoking -continue duo nebs -PFT done/ will ask RT about results (not on chart) -trial of Advair and steroids -will ask pulmonology to see -no hx of asthma or chronic bronchitis, mainly has exertional dyspnea, no cough -alpha-1 antitrypsin level pending -procalcitonin level low * hypertensive urgency with a systolic blood pressure greater than 200 on arrival to the ER -could be a stress response due to the hypoxemia -pressure is markedly improved with use of oxygen * hypothyroidism-TSH is stable * Hx of smoking x 45 years/pack a day -quit 2 years ago -congratulated her on this *Plan: will dc iv steroids, she is feeling better, start prednisone. Await input from Dr Hopkins. Subjective: Mitali is feeling much better than when admitted. Objective: Vital Signs Temp Pulse Resp BP Pulse Ox 36.4 C 96 16 139/67 H 94 12/11/16 07:58 12/11/16 07:58 12/11/16 07:58 12/11/16 07:58 12/11/16 07:58 Laboratory Results 12/10/16 03:53 12/10/16 03:53 12/10/16 12/11/16 12/12/16 05:59 05:59 05:59 Intake Total 880 1100 Balance 880 1100 PT 13.0 SEC (12.0-15.0) 12/09/16 17:55 INR 1.01 (0.83-1.16) 12/09/16 17:55 - Physical Exam Constitutional: no apparent distress, appears nourished, not in pain Eyes: PERRL Ears, Nose, Mouth, Throat: hearing normal Cardiovascular: regular rate and rhythym Respiratory: no respiratory distress, reduced air movement, No expiratory wheeze , No rhonchi Gastrointestinal: normoactive bowel sounds Skin: warm Musculoskeletal: full muscle strength Neurologic: AAOx3 Psychiatric: interacting appropriately, not anxious ICD10 Worksheet Patient Problems: Problems Problem Status Onset Dyspnea Acute Hypertensive emergency Acute Hypoxia Acute
--- NOTE | 2016-12-11 08:56 | PDMN ---
Medical Necessity Medical necessity: change to IP; los >2 mn for acute hypoxemic resp fail, hypertensive urgency, for initiation of inhalers, steroids, pulm consult & monitoring of BP; per progress note & order 12/10/16
[2016-12-11] MEDS ORDERED: Herbals/Supplements -Info Only PO SCH (09:00)
[2016-12-11] MEDS: predniSONE 20 MG TAB PO SCH (10:41)
[2016-12-11] MEDS: ATORVASTATIN CALCIUM 10 MG TAB PO SCH (20:49)
[2016-12-11] MEDS: LEVOTHYROXINE 125 MCG TAB PO SCH (20:49)
--- NOTE | 2016-12-11 21:59 | GCON ---
[f rep st] CONSULTATION PULMONARY CONSULTATION DATE OF CONSULTATION: 12/11/2016 REASON FOR CONSULTATION: Shortness of breath, hypoxemia, COPD. HISTORY OF PRESENT ILLNESS: The patient is a very pleasant 61-year-old female, who was admitted on , with dyspnea on exertion, associated with some subjective lightheadedness. She was hypertensiv e in the emergency department, as well as hypoxemic. She was treated for hypertension. She has been seen by Cardiology with a negative treadmill test and myocardial perfusion study, however, the achie stephen heart rate was somewhat suboptimal. She does have a history of significant tobacco abuse. She s tarted smoking at the age of 14, and quit smoking at the age of 59, averaging 1 pack of cigarettes pe r day. She has never been told she had chronic obstructive pulmonary disease, has not been on oxygen or inhalers, however, she has been increasingly dyspneic with exertion over the last several years. In general, she has done less and less. On trying to walk around a [place] this last summer, she would have to sit down frequently to catch her breath. 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 A CT angiogram of the chest was done on admission. There was no evidence of pulmonary embolic diseas e, pneumonia, pleural effusions, etc. There was some minimal basilar atelectasis, and no evidence of significant emphysema. A cardiac echo was done, which showed normal left ventricular function, the right ventricle also appeared normal, as did right ventricular function. There did not appear to be any pulmonary hypertension. Mild diastolic dysfunction was found. Spirometry was performed pre and post bronchodilator. There is evidence for severe obstructive disea se with improvement post bronchodilator. Mild restrictive disease cannot be excluded at this time. PAST MEDICAL HISTORY: Remarkable for hypothyroidism; on replacement, hyperlipidemia, and recently no lindsey hypertension. MEDICATIONS: She is currently on amlodipine. DRUG ALLERGIES: Tetracycline. SOCIAL HISTORY: The patient previously worked as an plant accountant. 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 She has not smoked for the last 2 years. S ignificant alcohol is denied. She has a daughter who lives in [place]. She has been for ma ny years. She lives independently. FAMILY HISTORY: Noncontributory. REVIEW OF SYSTEMS: A 10-point review of systems is unremarkable. PHYSICAL EXAMINATION: GENERAL: Reveals a very pleasant woman, who is sitting comfortably on the rebecca e of her bed. She is in no distress. VITAL SIGNS: Oxygen is in place at 4 L with saturations of 97 %. She is afebrile. Heart rate is 90 to 110 and regular. Blood pressure is 137/54. HEENT: Unrema rkable for lymphadenopathy or thyromegaly. NECK: There is no jugular venous distention. PULMONARY: The chest reveals decreased breath sounds bilaterally with a prolonged expiratory phase. There are no wheezes, rales, or rhonchi. HEART: Tones are distant. The rhythm is currently regular. No gal lops are appreciated. ABDOMEN: Soft, nontender, perhaps mildly overweight. There is no obvious org anomegaly. Bowel sounds are present. EXTREMITIES: Unremarkable for edema. NEUROLOGIC: Within nor mal limits. DATABASE: Radiologic studies and cardiac echo are as outlined above. LABORATORY DATA: White blood cell count is 7000, hematocrit 40, platelets normal. PT and PTT were n ormal on admission. Chemistries are entirely within normal limits, as was urinalysis on admission. ASSESSMENT: 1. Chronic obstructive pulmonary disease. This is secondary to a long history of tobacco abuse. He r admission may have been precipitated by a mild exacerbation, possibly secondary to low-grade viral infection versus allergies? Or perhaps her admission at this time simply represents slow decompensat ion coupled with increased physical demands from her recent employment resulting in more noticeable d yspnea on exertion. She is currently being treated with bronchodilator therapies and steroids, both of which are appropriate. Other medications are not indicated at this time, however, they can be con sidered as an outpatient in the future. No antibiotics are indicated. 2. Hypertension. Her increased blood pressure on admission may in part have been secondary to incre ased physical stress from respiratory decompensation. PLAN/RECOMMENDATIONS: Duonebs and steroids along with oxygen should be continued. She can be sent h ome on all these. I will plan on following her in the office as an outpatient. She will likely need oxygen with heavier exertional activities and at night. It remains to be seen whether not she will need oxygen more continuously and at rest during the day. I would hope not. Other medications can b e considered as an outpatient, including inhaled steroids, in combination with long-acting bronchodil ators, anticholinergics, etc. All of the above was discussed with the patient. Further plans and recommendations will be made over the next 12-24 hours. It would seem to be appropriate to consider her for discharge to home tomorro w. /[id number]/MODL
[2016-12-12] MEDS: IPRATROPIUM/ALBUTEROL 3 ML DEYVIAL IH SCH ×2 (05:07→11:40)
[2016-12-12 05:23] VITALS: BP 126/70
[2016-12-12] MEDS: OMEGA-3 FATTY ACIDS 1,000 MG CAP PO SCH (08:17)
[2016-12-12] MEDS: predniSONE 20 MG TAB PO SCH (08:17)
[2016-12-12] MEDS: amLODIPine BESYLATE 5 MG TAB PO SCH (08:17)
[2016-12-12] MEDS: CHOLECALCIFEROL VIT D3 2,000 UNITS TAB/CAP PO SCH (08:18)
[2016-12-12 08:25] VITALS: TEMP 97.6
--- NOTE | 2016-12-12 09:41 | SOAPPROG ---
SOAP Progress Note Assessment/Plan: Assessment: COPD. This is a new diagnosis for the patient. She has relatively severe disease. She has a 45 pack year history of tobacco abuse, and quit 2 years ago. She has had progressive dyspnea with exertional activities and presents now probably secondary to a slow progression of her disease combined with increased physical activity. She will need oxygen at home, inhaled therapies including nebulized albuterol/ipratropium bromide. She will go home on prednisone and can taper this slowly. Advair will be started now. Further medication changes can be made as an outpatient. Hypertension. High blood pressures present on admission. BP well controlled on low-dose amlodipine. Plan: Discharge home later today.. She will need to be seen by PT and OT today. I would like her ambulated, including a flight of stairs. Respiratory therapy to check saturations at rest on room air with exertion. I recommend that she goes home on 40 mg of prednisone for 2 more days then taper slowly: 30 mg x4 days, 20 mg x4 days, 10 mg x4 days, 5 mg x4 days then off. I will try to see her back in the office next week. She should also go home on duo nebs four times daily. I will start Advair now. Further medication changes or additions will be considered as an outpatient. All the above was discussed with the patient, nursing, and respiratory therapy. Patient to call office to schedule an appointment: [phone] Subjective: Slept well overnight. No complaints. No cough, no mucus. Does not feel particularly short of breath. No chest pain. Anxious for discharge. Remains on oxygen at 4 L. Has not ambulated. Has stairs at home. Objective: Vital Signs Temp Pulse Resp BP Pulse Ox 36.4 C 88 18 126/70 H 93 12/12/16 08:00 12/12/16 08:00 12/12/16 08:00 12/12/16 08:17 12/12/16 08:00 12/11/16 12/12/16 12/13/16 05:59 05:59 05:59 Intake Total 1100 2220 Output Total 600 Balance 1100 1620 PT 13.0 SEC (12.0-15.0) 12/09/16 17:55 INR 1.01 (0.83-1.16) 12/09/16 17:55 Physical Exam - Physical Exam General Appearance: alert, no apparent distress EENT: other (Oxygen in place by nasal cannula at 4 L.) Neck: normal inspection Respiratory: lungs clear, decreased breath sounds (Distant breath sounds consistent with COPD.), prolonged expiration, No rales, No rhonchi, No wheezing Cardiac/Chest: regular rate, rhythm Abdomen: normal bowel sounds, non-tender, soft Skin: normal color, warm/dry Extremities: No pedal edema Neuro/Psych: no motor/sensory deficits, No cognition abnormalities ICD10 Worksheet Patient Problems: Problems Problem Status Onset Dyspnea Acute Hypertensive emergency Acute Hypoxia Acute
[2016-12-12] MEDS ORDERED: FLUTICASONE/SALMETER 250/50MCG DISKUS IH SCH (10:00)
--- NOTE | 2016-12-12 10:05 | PDHOMEO2F ---
Home Oxygen Face to Face Home Orders: I certify that a physician or a nurse practitioner or physician's assistant professor of mathematics has had a stsy-wv-jwti encounter with this patient on the date of this order due to the diagnosis listed, which relates to the primary reason the patient requires home oxygen. Alternative treatments have been tried, or considered, and deemed ineffective. It is anticipated that supplemental oxygen will result in improvement with treatment. Home oxygen qualifying diagnosis: COPD exacerbation SpO2 on room air (%): 82% Frequency of home oxygen needed: continuous Home oxygen liters per minute: 4 Home oxygen delivery device: nasal cannula Concentrator: Yes E-tanks for mobility and back up: Yes If ordering portable O2, is the patient mobile in the home?: Yes I certify that, based on these findings, the home oxygen is medically necessary for this patient for the following length of time. Length of time home oxygen needed: 99 years
--- NOTE | 2016-12-12 10:37 | HOSPPROG ---
Hospitalist Progress Note Assessment/Plan: 61 yo F presents with fatigue, LEE, lightheadedness, hypoxia, and uncontrolled hypertension. 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 Objective: Vital Signs Temp Pulse Resp BP Pulse Ox 36.4 C 88 18 126/70 H 81 L 12/12/16 08:00 12/12/16 08:00 12/12/16 08:00 12/12/16 08:17 12/12/16 10:14 12/11/16 12/12/16 12/13/16 05:59 05:59 05:59 Intake Total 1100 2220 Output Total 600 Balance 1100 1620 PT 13.0 SEC (12.0-15.0) 12/09/16 17:55 INR 1.01 (0.83-1.16) 12/09/16 17:55 - Physical Exam Constitutional: no apparent distress, appears nourished, not in pain Eyes: PERRL Ears, Nose, Mouth, Throat: hearing normal Cardiovascular: regular rate and rhythym, tachycardia Respiratory: no respiratory distress Gastrointestinal: normoactive bowel sounds Skin: warm Musculoskeletal: full muscle strength Neurologic: AAOx3 Psychiatric: interacting appropriately ICD10 Worksheet Patient Problems: Problems Problem Status Onset Dyspnea Acute Hypertensive emergency Acute Hypoxia Acute
[2016-12-12 11:52] VITALS: PULSE 86; RESP 16
[2016-12-12 12:50] VITALS: O2SAT 93
--- NOTE | 2016-12-12 16:35 | ASDISCHSUM ---
Discharge Information Plan Status:Home with No Needs Medically Cleared to Leave: Discharge Date:12/12/2016 03:24 PM CM D/C Disposition:Home, Routine, Self-Care ADT D/C Disposition:Home, Routine, Self-Care Projected Discharge Date:12/12/2016 03:24 PM Transportation at D/C: Discharge Delay Reason: Follow-Up Date:12/12/2016 03:24 PM Discharge Slot: Final Diagnosis: Placement Information Patient Contact Information Contact Name:ROMARIO Relationship:Sister Address: Work Phone: City: [facility] Phone: State/Zip Code: Email: Financial Information Financial Class: Primary Plan Desc:[employer] [place] Primary Plan Number:[id number] Secondary Plan Desc: Secondary Plan Number: Assessment Information [facility] CM Progress Note CM Note CM Note Notes: Patient admitted with fatigue, LEE, hypoxia, and uncontrolled hypertension. Her stress test and echocardiogram were normal. Per hospitalist, there is a suspicion that she has an undiagnosed COPD (patient has a significant hx of smoking). PFTs ordered today. Anticipate patient will d/c home without any needs. CM available if any arise. Date Signed: 12/10/2016 02:08 PM Electronically Signed By:Kayy Carolina RN Intervention Information
--- NOTE | 2016-12-12 18:23 | GDS ---
[f rep st] DISCHARGE SUMMARY DISCHARGE DIAGNOSES: 1. Chronic obstructive pulmonary disease, new diagnosis. 2. Hypertensive urgency with systolic pressure elevated on admission. 3. Hypothyroidism. 4. History of smoking x45 years. 5. Increased stressors. 6. Tachycardia. CONSULTATIONS: Dr. Eduard Hopkins. Briefly, this is a very sweet patient who presented to the emergency room with dyspnea on exertion as well as lightheadedness. She has been having ongoing shortness of breath and exertion for approximately 6 months, but had been progressing over a period of time. In the emergency room, she was noted to be very hypertensive with a systolic blood pressure greater than 200 and was placed on a nitroglycerin drip and her systolic dropped to the 120s. She had a CTA performed on admission to rule out a PE. This showed no evidence of pulmonary embolic disease. She had some aortic plaque formation and mild dilation of the ascending aorta without evidence for aortic dissection. It was unclear initially if it was her heart. She had a myocardial perfusion scan performed that showed no evidence of myocardial ischemia. She had pulmonary function tests which were indicative of COPD. She was seen and evaluated by Dr. Eduard Hopkins. She will continue treatment for her COPD as well as home oxygen. She will further follow up with Dr. Eduard Hopkins in the outpatient setting. HOSPITAL COURSE: 1. COPD. This is a new diagnosis for her. She is requiring 4 L of oxygen. Recommending she stay on oxygen around the clock. She has an appointment to follow up with Dr. Hopkins in the outpatient setting. 2. Hypertensive urgency with elevated systolic blood pressure greater than 200 on arrival. This was most likely a stress response due to the hypoxemia. She has been started on low-dose Norvasc and she will continue this.Blood pressure has been stable. 3. Hypothyroidism. TSH is stable. 4. Increased stressors. Her boss recently a few years ago resulting in her losing her job. 5. Tachycardia. CTA is negative. This is intermittent. Avoiding a beta kayden at this time due to her new COPD diagnosis. CONDITION ON DISCHARGE: Stable. Blood pressure is 126/70. O2 sats on room air are 81%; on 4 L are 94%. Respiratory rate is 18, pulse is 88, temperature 36.4 Celsius. MEDICATIONS AT DISCHARGE: Please see the EMR. DISCHARGE INSTRUCTIONS: 1. To follow up with Dr. Hopkins in the outpatient setting. 2. To wear the oxygen around the clock. 3. Take the prednisone with food. She will be on a slow wean with this. 4. If she develops fever, chills, chest pain, shortness of breath, return to the ER. Greater than 30 minutes discharging and coordinating care. /[id number]/MODL MTDD
[2016-12-13 13:41] LABS: METANEPHRINES PLASMA METAP <0.20 nmol/L (<0.50); NORMETANEPHRINE PLASMA METAP 1.3 nmol/L (<0.90)
== END 2016-12-12 15:24 | disposition home or self-care (01) | DRG 189 ==
LOC: CED 17:38 → CEDHOLD 20:52 → F2W 22:56 → OBSVTOIN 12-10 15:39
PROVIDERS: ADMIT Internal Medicine; ATTEND Student in an Organized Health Care Education/Training Program
DX: J96.01 Acute respiratory failure with hypoxia (principal); J44.9 Chronic obstructive pulmonary disease, unspecified; I16.0 Hypertensive urgency; E03.9 Hypothyroidism, unspecified; E78.5 Hyperlipidemia, unspecified; Z87.891 Personal history of nicotine dependence
CPT/HCPCS: 71010-PO; 71275-PO; 80048-PO; 81003-PO; 82103-90; 82550-PO; 82553-PO; 83835-90; 83880-PO; 84443-PO; 84484-PO; 85025-PO; 85378-PO; 85610-PO; 85730-PO; 96365; 96366; 96374; A9500; G0378; J2785; Q9967

== ENCOUNTER → 2016-12-24 | Outpatient (CLI) | payer MEDICAID | LOC: CIMAGING 14:25 | PROVIDERS: ATTEND Family Medicine | DX: Z12.31 Encounter for screening mammogram for malignant neoplasm of breast (principal) | CPT/HCPCS: G0202 ==

== ENCOUNTER 2017-03-01 14:13 | Emergency (ER) | payer MEDICAID ==
[2017-03-01 14:31] VITALS: TEMP 98.2
[2017-03-01] MEDS ORDERED: IPRATROPIUM/ALBUTEROL 3 ML DEYVIAL ONE (15:02)
[2017-03-01] MEDS ORDERED: IPRATROPIUM/ALBUTEROL 3 ML DEYVIAL IH ONE (15:04)
--- NOTE | 2017-03-01 15:28 | EDPHY ---
H & P Stated Complaint: pain with cough lower left side Time Seen by Provider: 03/01/17 15:09 HPI/ROS: CHIEF COMPLAINT: Cough HISTORY OF PRESENT ILLNESS: The patient is a 61-year-old female with a recent diagnosis of COPD wears 3 L of oxygen at home. She takes albuterol 3 times a day and Atrovent as well. She states that on she developed a sore throat and stuffy nose that has persisted ever since. On she had a slight fever but has not since. She feels shortness of breath with mild exertion. She does not at rest. She does not have any chest pain. Her cough is not productive. No abdominal pain or chest pain. REVIEW OF SYSTEMS: Constitutional: denies: chills, fever, recent illness, recent injury EENTM: denies: blurred vision, double vision, nose congestion Respiratory: See HPI Cardiac: denies: chest pain, irregular heart rate, lightheadedness, palpitations Gastrointestinal/Abdominal: denies: abdominal pain, diarrhea, nausea, vomiting, blood streaked stools Genitourinary: denies: dysuria, frequency, hematuria, pain Musculoskeletal: denies: joint pain, muscle pain Skin: denies: lesions, rash, jaundice, bruising Neurological: denies: headache, numbness, paresthesia, tingling, dizziness, weakness Hematologic/Lymphatic: denies: blood clots, easy bleeding, easy bruising Immunologic/allergic: denies: HIV/AIDS, transplant EXAM: GENERAL: Well-appearing, well-nourished and in no acute distress. HEAD: Atraumatic, normocephalic. EYES: Pupils equal round and reactive to light, extraocular movements intact, sclera anicteric, conjunctiva are normal. ENT: TMs normal, nares patent, oropharynx clear without exudates. Moist mucous membranes. NECK: Normal range of motion, supple without lymphadenopathy or JVD. LUNGS: Breath sounds clear to auscultation bilaterally and equal. No wheezes rales or rhonchi. HEART: Regular rate and rhythm without murmurs, rubs or gallops. ABDOMEN: Soft, nontender, normoactive bowel sounds. No guarding, no rebound. No masses appreciated. BACK: No CVA tenderness, no spinal tenderness, step-offs or deformities EXTREMITIES: Normal range of motion, no pitting or edema. No clubbing or cyanosis. NEUROLOGICAL: Cranial nerves II through XII grossly intact. Normal speech, normal gait. 5/5 strength, normal movement in all extremities, normal sensation PSYCH: Normal mood, normal affect. SKIN: Warm, dry, normal turgor, no visible rashes or lesions. Source: Patient Exam Limitations: No limitations - Personal History Current Tetanus Diphtheria and Acellular Pertussis (TDAP): Yes - Medical/Surgical History Hx Asthma: No Hx Chronic Respiratory Disease: Yes Hx Diabetes: No Hx Cardiac Disease: No Hx Renal Disease: No Hx Cirrhosis: No Hx Alcoholism: No Hx HIV/AIDS: No Hx Splenectomy or Spleen Trauma: No Other PMH: ovary removed. hypothyroid. cholesterol, COPD diagnosed in November 2016 - Family History Significant Family History: No pertinent family hx - Social History Smoking Status: Former smoker Alcohol Use: Sober Drug Use: None Constitutional: Initial Vital Signs Temperature (C) 36.8 C 03/01/17 14:26 Heart Rate 94 03/01/17 14:26 Respiratory Rate 20 03/01/17 14:26 Blood Pressure 113/78 03/01/17 14:26 O2 Sat (%) 87 L 03/01/17 14:26 O2 Delivery Mode Nasal Cannula O2 (L/minute) 3 Allergies/Adverse Reactions: tetracycline Allergy (Verified 03/01/17 14:31) Home Medications: Medication Instructions Recorded Atorvastatin Calcium [Lipitor 10 10 mg PO HS 12/09/16 mg (*)] Levothyroxine [Synthroid 125 mcg 125 mcg PO HS 12/09/16 (*)] Cholecalciferol Vit D3 [Vitamin D3 4,000 units PO DAILY 12/10/16 2000 units tab (OTC)] Herbals/Supplements -Info Only 1 ea PO DAILY 12/10/16 [place]-3 Fatty Acids [Fish Oil 1000 1,000 mg PO DAILY 12/10/16 mg (*)] Fluticasone/Salmeter 250/50Mcg 1 puffs IH BID #1 disk 12/12/16 [Advair 250/50 (*)] Ipratropium/Albuterol [Duoneb (*)] 3 ml IH Q6HRS #60 deyvial 12/12/16 amLODIPine BESYLATE [Norvasc 5 mg 5 mg PO DAILY #30 tab 12/12/16 (*)] levOFLOXACIN [levAQUIN] 750 mg PO DAILY #10 tab 03/01/17 Medical Decision Making - Diagnostics Imaging: Discussed imaging studies w/ state archivist Radiologist ED Course/Re-evaluation: The patient was reportedly wheezing and hypoxic on arrival. After a single neb she is saturating 97% on her baseline 3 L. She is no longer wheezing or has rhonchi. We will obtain a chest x-ray and observed. 4:05 p.m. the patient appears to have left lower lobe infiltrate on x-ray. She is doing well clinically and has stable vital signs. I will start her Levaquin , also give her course of steroids and encouraged her to use her inhaler as needed. We discussed indications for returning. She has a follow-up appoint with Dr. Eduard Hopkins her spinner operator this week and has planned to start pulmonary therapy on Friday. Differential Diagnosis: Partial list of the Differential diagnosis considered include but were not limited to; viral syndrome, bronchitis, pneumonia and although unlikely based on the history and physical exam, I also considered influenza, sepsis. I discussed these differential diagnoses and the plan with the patient as well as the usual and expected course. The patient understands that the diagnosis is provisional and that in medicine we are not always correct and that further workup is often warranted. Usual and customary warnings were given. All of the patient's questions were answered. The patient was instructed to return to the emergency department should the symptoms at all worsen or return, otherwise to followup with the physician as we discussed. - Data Points Medications Given: Discontinued Medications Albuterol/Ipratropium (Duoneb) 3 ml IH EDNOW ONE Stop: 03/01/17 15:05 Last Admin: 03/01/17 15:05 Dose: 3 ml Levofloxacin (Levaquin) 750 mg PO EDNOW ONE PRN Reason: Protocol Stop: 03/01/17 16:07 Last Admin: 03/01/17 16:14 Dose: 750 mg Prednisone (Prednisone) 60 mg PO EDNOW ONE Stop: 03/01/17 16:07 Last Admin: 03/01/17 16:14 Dose: 60 mg Departure - Departure Disposition: Home, Routine, Self-Care Clinical Impression: Chronic obstructive pulmonary disease with acute exacerbation Pneumonia Qualifiers: Pneumonia type: due to unspecified organism Laterality: left Lung location: lower lobe of lung Qualified Code(s): J18.1 - Lobar pneumonia, unspecified organism Condition: Good Instructions: COPD (Chronic Obstructive Pulmonary Disease) (ED), Pneumonia (ED) Referrals: NONE *PRIMARY CARE P,. [Primary Care Provider] - As per Instructions Eduard Hopkins MD [Medical Doctor] - 2-3 days, call for appt. Prescriptions: levOFLOXACIN [levAQUIN] 750 mg PO DAILY #10 tab
[2017-03-01] MEDS ORDERED: predniSONE 20 MG TAB PO ONE (16:06)
[2017-03-01 16:35] VITALS: BP 128/55; PULSE 84; RESP 16; O2SAT 92
== END 2017-03-01 16:33 | disposition home or self-care (01) ==
LOC: CED 14:13
DX: J18.9 Pneumonia, unspecified organism (principal); J44.1 Chronic obstructive pulmonary disease with (acute) exacerbation; Z87.891 Personal history of nicotine dependence
CPT/HCPCS: 71046-PO; J7512

== ENCOUNTER → 2017-12-25 | Outpatient (CLI) | payer MEDICAID | LOC: CIMAGING 14:21 | PROVIDERS: ATTEND Family Medicine | DX: Z12.31 Encounter for screening mammogram for malignant neoplasm of breast (principal) ==

== ENCOUNTER → 2018-01-09 | Outpatient (CLI) | payer MEDICAID | LOC: CIMAGING 13:22 | PROVIDERS: ATTEND Family Medicine | DX: R92.8 Other abnormal and inconclusive findings on diagnostic imaging of breast (principal) ==

== ENCOUNTER → 2018-07-27 | Outpatient (CLI) | payer OTHER | LOC: FIMAGING 12:33 ==

== ENCOUNTER 2018-08-05 07:57 | Day surgery (SDC) | payer OTHER | END 2018-08-05 11:05 | disposition home or self-care (01) | LOC: FSGY 07:57 ==